=== PATIENT | female | born 2000 | race Caucasian/White ===

== ENCOUNTER 2023-01-15 22:02 | Inpatient (IN) | payer OTHER ==
[~2023-01-15] VITALS: Ht 162.6 cm; Wt 51.3 kg
[2023-01-16 00:07] LABS: COVID AG,FIA SOURCE NASAL SWAB
[2023-01-16 00:29] LABS: SARS-COV2 (COVID) ANTIGEN,FIA Negative (Negative)
[2023-01-16] MEDS ORDERED: DEXT5TAB16 PO (00:29)
[2023-01-16 01:15] LABS: ALCOHOL, URINE DRUG SCREEN NEGATIVE (NEGATIVE); AMPHET/METH SCREEN,URINE NEGATIVE (NEGATIVE); BARBITURATE SCREEN, URINE NEGATIVE (NEGATIVE); BENZODIAZEPINES SCREEN,URINE NEGATIVE (NEGATIVE); CANNABINOID SCREEN,URINE POSITIVE (NEGATIVE); COCAINE SCREEN,URINE NEGATIVE (NEGATIVE); METHADONE SCREEN, URINE NEGATIVE (NEGATIVE); OPIATE SCREEN,URINE NEGATIVE (NEGATIVE); PHENCYCLIDINE SCREEN,URINE NEGATIVE (NEGATIVE)
[2023-01-16] MEDS ORDERED: LORazepam 2 MG/ML VIAL IM ONE (01:45)
[2023-01-16] MEDS ORDERED: HALOPERIDOL LACTATE 5 MG/ML VIAL IM ONE (01:45)
[2023-01-16] MEDS ORDERED: DiphenhydrAMINE HCL 50 MG/ML VIAL IM ONE (01:45)
[2023-01-16 02:53] LABS: BASOPHILS % (AUTO) 0.4 % (0.0-2.0); EOSINOPHILS % (AUTO) 0.2 % (1.0-6.0); HEMATOCRIT 38.5 % (36-46); HEMOGLOBIN 13.6 g/dL (12.0-16.0); LYMPHOCYTES # (AUTO) 1.8 K/uL (1.0-4.8); LYMPHOCYTES % (AUTO) 16.5 % (22.0-44.0); MEAN CORPUSCULAR HGB CONC 35.4 G/dL (31.0-37.0); MEAN CORPUSCULAR VOLUME 91 fL (80-100); MONOCYTES # (AUTO) 0.7 K/uL (0.1-1.0); MONOCYTES % (AUTO) 6.3 % (2.0-9.0); NEUTROPHILS # (AUTO) 8.4 K/uL (1.8-7.7); NEUTROPHILS % (AUTO) 76.6 % (40.0-70.0); PLATELET COUNT (AUTO) 373 K/uL (150-450); RED BLOOD CELL COUNT(AUTO) 4.25 MIL/uL (4.00-5.20); RED CELL DISTRIBUTION WIDTH 13.1 % (11.5-14.5)
[2023-01-16 03:01] LABS: ANION GAP 9 mmol/L (8-16); CALCIUM, TOTAL 9.2 mg/dL (8.8-10.5); CARBON DIOXIDE 27 mmol/L (22-29); CHLORIDE 100 mmol/L (98-107); CREATININE 0.68 mg/dL (0.60-1.30); GLOMERULAR FILTR. RATE CALC > 60 mL/min (>60); GLUCOSE,RANDOM 111 mg/dL (70-110); POTASSIUM 3.4 mmol/L (3.5-5.1); SODIUM SERUM 136 mmol/L (136-145); UREA NITROGEN, BLOOD 5 mg/dL (7-18)
[2023-01-16 03:07] LABS: ALANINE AMINOTRANSFERASE 18 U/L (12-78); ALBUMIN 4.1 g/dL (3.4-5.0); ALKALINE PHOSPHATASE 67 U/L (46-116); ASPARTATE AMINOTRANSFERASE 14 U/L (15-37); BILIRUBIN,TOTAL 0.8 mg/dL (0.1-1.0); TOTAL PROTEIN, SERUM 7.2 g/dL (6.4-8.2)
[2023-01-16 03:10] LABS: ALCOHOL, BLOOD (SERUM) < 3 mg/dL (0-10)
[2023-01-16] MEDS ORDERED: POTASSIUM CHLORIDE 10% 40 MEQ/30 ML LIQUID UDCUP PO ONE (03:30)
[2023-01-16] MEDS ORDERED: LORazepam 2 MG TABLET PO PRN (07:30)
[2023-01-16] MEDS ORDERED: ZOLPIDEM TARTRATE 10 MG TABLET PO PRN (07:30)
[2023-01-16] MEDS ORDERED: QUEtiapine FUMARATE 100 MG TABLET PO PRN (07:30)
[2023-01-16] MEDS ORDERED: DEXT5TAB17 PO (11:26)
[2023-01-16] MEDS ORDERED: DEXT20CA4 PO (11:26)
[2023-01-16] MEDS ORDERED: POTASSIUM CHLORIDE 20 MEQ ER TABLET PO ONE (11:30)
[2023-01-16 13:03] VITALS: BP 116/78; PULSE 87; RESP 18; TEMP 97.7; O2SAT 100
[2023-01-16] MEDS ORDERED: TUBERCULIN, PURIFIED PROTEIN DERIVATIVE 5 TU/0.1 ML SYRINGE ID ONE (15:15)
[2023-01-16] MEDS ORDERED: ACETAMINOPHEN 325 MG TABLET PO PRN (15:15)
[2023-01-16] MEDS ORDERED: MAGNESIUM HYDROXIDE SUSPENSION 30 ML UDCUP PO PRN (15:15)
[2023-01-16] MEDS ORDERED: OLANZapine 5 MG RAPDIS TABLET PO PRN ×2 (15:15)
[2023-01-16] MEDS ORDERED: LOPERAMIDE HCL 2 MG CAPSULE PO PRN (15:15)
[2023-01-16] MEDS ORDERED: MAG HYDROX/ALUMINUM HYD/SIMETH ES 30 ML SUSPENSION UDCUP PO PRN (15:15)
[2023-01-16] MEDS ORDERED: PROMETHAZINE HCL 25 MG TABLET PO PRN (15:15)
[2023-01-16] MEDS ORDERED: HydrOXYzine PAMOATE 50 MG CAPSULE PO PRN (15:15)
[2023-01-16] MEDS ORDERED: GuaiFENesin/D-METHORPHAN [SUGAR-FREE] 200-20MG/10 ML SYRUP UDCUP PO PRN (15:15)
[2023-01-16] MEDS: THIAMINE 100 MG TABLET PO SCH (18:52)
[2023-01-16] MEDS: MELATONIN 5 MG TABLET PO SCH (20:08)
[2023-01-16 20:11] VITALS: BP 132/99; PULSE 109; RESP 18; TEMP 97.8; O2SAT 99
[2023-01-16] MEDS ORDERED: OLANZapine 5 MG RAPDIS TABLET PO SCH (21:00)
[2023-01-17 07:57] LABS: HEMOGLOBIN A1C 4.9 % (3.8-5.6)
[2023-01-17 08:16] LABS: ANION GAP 8 mmol/L (8-16); CALCIUM, TOTAL 9.2 mg/dL (8.8-10.5); CARBON DIOXIDE 27 mmol/L (22-29); CHLORIDE 102 mmol/L (98-107); CHOL/HDL RATIO 2.3 (3.9-5.7); CHOLESTEROL 104 mg/dL (131-200); CREATININE 0.63 mg/dL (0.60-1.30); FREE T4 (FREE THYROXINE) 1.47 ng/dL (0.76-1.46); GLOMERULAR FILTR. RATE CALC > 60 mL/min (>60); GLUCOSE,RANDOM 86 mg/dL (70-110); HDL CHOLESTEROL 45 mg/dL (40-60); LDL CHOL (CALC.) 47 mg/dL (0-130); POTASSIUM 3.8 mmol/L (3.5-5.1); SODIUM SERUM 137 mmol/L (136-145); THYROID STIMULATING HORMONE 0.85 uIU/mL (0.36-3.74); TRIGLYCERIDES 59 mg/dL (15-150); UREA NITROGEN, BLOOD 9 mg/dL (7-18)
[2023-01-17] MEDS: OMEGA-3/DHA/EPA/FISH OIL 1,000 MG CAPSULE PO SCH (08:29)
[2023-01-17] MEDS: THIAMINE 100 MG TABLET PO SCH ×2 (08:30→16:57)
[2023-01-17] MEDS: NALTREXONE HCL 50 MG TABLET PO SCH (08:30)
[2023-01-17] MEDS: FOLIC ACID 1 MG TABLET PO SCH (08:30)
[2023-01-17] MEDS: MULTIVITAMINS WITH MINERALS, THERAPEUTIC TABLET PO SCH (08:30)
[2023-01-17 08:33] VITALS: BP 118/69; PULSE 82; RESP 16; TEMP 98; O2SAT 97
[2023-01-17] MEDS ORDERED: LURASIDONE HCL 20 MG TABLET PO PRN (15:45)
[2023-01-17] MEDS: OXcarbazepine 300 MG TABLET PO SCH (16:57)
[2023-01-17 20:03] VITALS: BP 118/63; PULSE 97; RESP 17; TEMP 97.8
[2023-01-17] MEDS: MELATONIN 5 MG TABLET PO SCH (20:18)
[2023-01-17] MEDS ORDERED: LURASIDONE HCL 20 MG TABLET PO SCH (21:00)
[2023-01-18 03:06] LABS: HEPATITIS C AB (EIA) Non Reactive (Non Reactive)
[2023-01-18] MEDS: MULTIVITAMINS WITH MINERALS, THERAPEUTIC TABLET PO SCH (08:13)
[2023-01-18] MEDS: OMEGA-3/DHA/EPA/FISH OIL 1,000 MG CAPSULE PO SCH (08:13)
[2023-01-18] MEDS: OXcarbazepine 300 MG TABLET PO SCH ×2 (08:13→13:37)
[2023-01-18] MEDS: FOLIC ACID 1 MG TABLET PO SCH (08:13)
[2023-01-18] MEDS: NALTREXONE HCL 50 MG TABLET PO SCH (08:13)
[2023-01-18] MEDS: THIAMINE 100 MG TABLET PO SCH (08:13)
[2023-01-18] MEDS ORDERED: BuPROPion HCL XL 150 MG ER TABLET PO SCH (09:00)
[2023-01-18 10:14] VITALS: BP 118/81; PULSE 77; RESP 16; TEMP 97.9; O2SAT 99
[2023-01-18] MEDS ORDERED: NALT50TA PO (15:03)
[2023-01-18] MEDS ORDERED: BUPR-49 PO (15:03)
[2023-01-18] MEDS ORDERED: MELA5TAB40 PO (15:03)
[2023-01-18] MEDS ORDERED: OXCA300T28 PO (15:03)
[2023-01-18] MEDS ORDERED: LURA20TA2 PO (15:03)
[2023-01-18] MEDS ORDERED: OMEG-135 PO (15:03)
== END 2023-01-18 16:40 | disposition left against medical advice (07) | DRG 885 ==
LOC: EMS 22:04 → EDSEX 22:04 → B3A 01-16 08:52
PROVIDERS: ADMIT Psychiatry & Neurology Psychiatry; ATTEND Psychiatry & Neurology Psychiatry
DX: F31.2 Bipolar disorder, current episode manic severe with psychotic features (principal); F43.10 Post-traumatic stress disorder, unspecified; E87.6 Hypokalemia; F90.9 Attention-deficit hyperactivity disorder, unspecified type; Z53.21 Procedure and treatment not carried out due to patient leaving prior to being seen by health care provider; Z20.822 Contact with and (suspected) exposure to COVID-19; Z79.899 Other long term (current) drug therapy; Z87.891 Personal history of nicotine dependence
CPT/HCPCS: 80048; 80053; 80061; 80307; 83036; 84439; 84443; 84703; 85025; 86592; 86803; 87340; 99285; G0480; J1200; J1630; J2060; Q9967

== ENCOUNTER 2024-01-12 18:07 | Inpatient (IN) | payer OTHER, MEDICAID ==
[~2024-01-12 18:07] MED LIST: BUPR-49 PO; LURA20TA2 PO; MELA5TAB40 PO; NALT50TA6 PO; OMEG-135 PO; OXCA300T28 PO
[2024-01-12] MEDS ORDERED: MAGNESIUM HYDROXIDE SUSPENSION 30 ML UDCUP PO PRN (19:00)
[2024-01-12] MEDS ORDERED: ACETAMINOPHEN 325 MG TABLET PO PRN (19:00)
[2024-01-12] MEDS ORDERED: MAG HYDROX/ALUMINUM HYD/SIMETH ES 30 ML SUSPENSION UDCUP PO PRN (19:00)
[2024-01-12] MEDS ORDERED: LOPERAMIDE HCL 2 MG CAPSULE PO PRN (19:00)
[2024-01-12 19:55] LABS: GLUCOMETER DEV NAME(LOC) POC.BV; POC SARS-COV2 AG, FIA NEGATIVE (NEGATIVE)
[2024-01-12] MEDS: ZOLPIDEM TARTRATE 10 MG TABLET PO PRN (20:35)
[2024-01-12] MEDS: HALOPERIDOL 5 MG TABLET PO PRN (20:35)
[2024-01-12] MEDS: LORazepam 2 MG TABLET PO PRN (20:35)
[2024-01-12 22:06] VITALS: BP 141/92; PULSE 89; RESP 19; TEMP 97.5; O2SAT 97
[2024-01-12 22:08] VITALS: BP 141/92; PULSE 89; RESP 19; TEMP 97.5; O2SAT 97
[2024-01-13 08:10] VITALS: BP 109/73; PULSE 76; RESP 16; TEMP 97.8; O2SAT 98
[2024-01-13 08:16] LABS: BASOPHILS % (AUTO) 0.4 % (0.0-2.0); EOSINOPHILS % (AUTO) 3.1 % (1.0-6.0); HEMATOCRIT 37.4 % (36-46); LYMPHOCYTES # (AUTO) 2.8 K/uL (1.0-4.8); LYMPHOCYTES % (AUTO) 39.8 % (22.0-44.0); MEAN CORPUSCULAR HEMOGLOBIN 31.6 pg (26.0-34.0); MEAN CORPUSCULAR HGB CONC 34.6 G/dL (31.0-37.0); MEAN CORPUSCULAR VOLUME 91 fL (80-100); MONOCYTES # (AUTO) 0.7 K/uL (0.1-1.0); MONOCYTES % (AUTO) 10.4 % (2.0-9.0); NEUTROPHILS # (AUTO) 3.3 K/uL (1.8-7.7); NEUTROPHILS % (AUTO) 46.3 % (40.0-70.0); PLATELET COUNT (AUTO) 354 K/uL (150-450); RED CELL DISTRIBUTION WIDTH 13.1 % (11.5-14.5); WHITE BLOOD COUNT (AUTO) 7.1 K/uL (4.5-11.0)
[2024-01-13 08:41] LABS: ALANINE AMINOTRANSFERASE 17 U/L (12-78); ALBUMIN 3.6 g/dL (3.4-5.0); ALKALINE PHOSPHATASE 65 U/L (46-116); ANION GAP 12 mmol/L (8-16); ASPARTATE AMINOTRANSFERASE 15 U/L (15-37); BILIRUBIN,TOTAL 0.9 mg/dL (0.1-1.0); CALCIUM, TOTAL 8.3 mg/dL (8.8-10.5); CARBON DIOXIDE 25 mmol/L (22-29); CHLORIDE 104 mmol/L (98-107); CHOL/HDL RATIO 1.9 (3.9-5.7); CHOLESTEROL 97 mg/dL (131-200); CREATININE 0.44 mg/dL (0.60-1.30); GLOMERULAR FILTR. RATE CALC > 60 mL/min (>60); GLUCOSE,RANDOM 78 mg/dL (70-110); HDL CHOLESTEROL 50 mg/dL (40-60); LDL CHOL (CALC.) 40 mg/dL (0-130); POTASSIUM 3.4 mmol/L (3.5-5.1); SODIUM SERUM 141 mmol/L (136-145); TOTAL PROTEIN, SERUM 6.4 g/dL (6.4-8.2); TRIGLYCERIDES 37 mg/dL (15-150); UREA NITROGEN, BLOOD 4 mg/dL (7-18)
[2024-01-13 09:02] LABS: HCG,QUANTITATIVE < 1 mIU/mL (0-6); THYROID STIMULATING HORMONE 0.96 uIU/mL (0.36-3.74)
[2024-01-13] MEDS ORDERED: PETROLATUM,WHITE 28 GM JELLY TP PRN ×2 (09:15→13:45)
[2024-01-13] MEDS ORDERED: LOPERAMIDE HCL 2 MG CAPSULE PO PRN ×2 (09:15→13:45)
[2024-01-13] MEDS ORDERED: MAGNESIUM HYDROXIDE SUSPENSION 30 ML UDCUP PO PRN ×2 (09:15→13:45)
[2024-01-13] MEDS ORDERED: ALBUTEROL SULFATE HFA 90 MCG/PUFF 8 GM INHALER IH PRN ×2 (09:15→13:45)
[2024-01-13] MEDS ORDERED: CloNIDine HCL 0.1 MG TABLET PO PRN ×2 (09:15→13:45)
[2024-01-13] MEDS ORDERED: GuaiFENesin/D-METHORPHAN [SUGAR-FREE] 200-20MG/10 ML SYRUP UDCUP PO PRN ×2 (09:15→13:45)
[2024-01-13] MEDS ORDERED: MAG HYDROX/ALUMINUM HYD/SIMETH ES 30 ML SUSPENSION UDCUP PO PRN ×2 (09:15→13:45)
[2024-01-13] MEDS ORDERED: ONDANSETRON 4 MG TABLET PO PRN ×2 (09:15→13:45)
[2024-01-13] MEDS ORDERED: DOCUSATE SODIUM 100 MG CAPSULE PO PRN ×2 (09:15→13:45)
[2024-01-13] MEDS ORDERED: ACETAMINOPHEN 325 MG TABLET PO PRN ×2 (09:15→13:45)
[2024-01-13] MEDS ORDERED: NICOTINE 14 MG/24 HOUR PATCH TD PRN (09:15)
[2024-01-13] MEDS ORDERED: IBUPROFEN 400 MG TABLET PO PRN ×2 (09:15→13:45)
[2024-01-13] MEDS: OXcarbazepine 300 MG TABLET PO SCH (13:58)
[2024-01-13] MEDS: NICOTINE 14 MG/24 HOUR PATCH TD PRN (14:04)
[2024-01-13] MEDS: LURASIDONE HCL 20 MG TABLET PO SCH (16:19)
[2024-01-13 20:46] VITALS: BP 139/100; PULSE 96; RESP 18; TEMP 97.4; O2SAT 99
[2024-01-14] MEDS: BuPROPion HCL XL 150 MG ER TABLET PO SCH (08:29)
[2024-01-14 08:34] VITALS: BP 123/78; PULSE 99; RESP 16; TEMP 97.9; O2SAT 97
[2024-01-14 09:17] LABS: BASOPHILS % (AUTO) 0.5 % (0.0-2.0); EOSINOPHILS % (AUTO) 1.5 % (1.0-6.0); HEMATOCRIT 41.7 % (36-46); HEMOGLOBIN 14.3 g/dL (12.0-16.0); LYMPHOCYTES # (AUTO) 2.1 K/uL (1.0-4.8); LYMPHOCYTES % (AUTO) 25.3 % (22.0-44.0); MEAN CORPUSCULAR HEMOGLOBIN 31.6 pg (26.0-34.0); MEAN CORPUSCULAR HGB CONC 34.3 G/dL (31.0-37.0); MEAN CORPUSCULAR VOLUME 92 fL (80-100); MONOCYTES # (AUTO) 0.7 K/uL (0.1-1.0); MONOCYTES % (AUTO) 7.9 % (2.0-9.0); NEUTROPHILS # (AUTO) 5.4 K/uL (1.8-7.7); NEUTROPHILS % (AUTO) 64.8 % (40.0-70.0); PLATELET COUNT (AUTO) 370 K/uL (150-450); RED BLOOD CELL COUNT(AUTO) 4.53 MIL/uL (4.00-5.20); RED CELL DISTRIBUTION WIDTH 13.6 % (11.5-14.5); WHITE BLOOD COUNT (AUTO) 8.4 K/uL (4.5-11.0)
[2024-01-14 09:27] LABS: HEMOGLOBIN A1C 4.9 % (3.8-5.6)
[2024-01-14 09:59] LABS: ALANINE AMINOTRANSFERASE 19 U/L (12-78); ALBUMIN 3.8 g/dL (3.4-5.0); ALKALINE PHOSPHATASE 71 U/L (46-116); ANION GAP 13 mmol/L (8-16); ASPARTATE AMINOTRANSFERASE 20 U/L (15-37); BILIRUBIN,TOTAL 0.9 mg/dL (0.1-1.0); CALCIUM, TOTAL 8.7 mg/dL (8.8-10.5); CARBON DIOXIDE 25 mmol/L (22-29); CHLORIDE 102 mmol/L (98-107); CHOL/HDL RATIO 2.2 (3.9-5.7); CHOLESTEROL 118 mg/dL (131-200); CREATININE 0.63 mg/dL (0.60-1.30); GLOMERULAR FILTR. RATE CALC > 60 mL/min (>60); GLUCOSE,RANDOM 55 mg/dL (70-110); HDL CHOLESTEROL 54 mg/dL (40-60); LDL CHOL (CALC.) 57 mg/dL (0-130); POTASSIUM 3.7 mmol/L (3.5-5.1); SODIUM SERUM 140 mmol/L (136-145); THYROID STIMULATING HORMONE 0.37 uIU/mL (0.36-3.74); TOTAL PROTEIN, SERUM 6.9 g/dL (6.4-8.2); TRIGLYCERIDES 37 mg/dL (15-150); UREA NITROGEN, BLOOD 5 mg/dL (7-18)
[2024-01-15 08:09] VITALS: BP 133/93; PULSE 100; RESP 16; TEMP 97.3; O2SAT 97
[2024-01-15] MEDS: INFLUENZA VIRUS VACCINE TVS (6MO+) 2024-25/PF 45 MCG/0.5 ML SYRINGE IM. ONE (10:50)
[2024-01-16 08:21] LABS: APPEARANCE,URINE TURBID (CLEAR); BILIRUBIN,URINE NEGATIVE (NEGATIVE); COLOR,URINE LIGHT ORANGE (YELLOW); GLUCOSE, URINE (UA) NEGATIVE (NEGATIVE); LEUKOCYTE ESTERASE ,URINE LARGE (NEGATIVE); NITRATE,URINE NEGATIVE (NEGATIVE); OCCULT BLOOD,URINE MODERATE (NEGATIVE); PH,URINE 6.5 (5.0-8.0); PH,URINE DRUG SCREEN 6.5 (5.0-8.0); PROTEIN,URINE 30-70 mg/dL (NEGATIVE); SPECIFIC GRAVITIY, URINE 1.003 (1.003-1.030); UROBILINOGEN,URINE <=1.0 mg/dL (<=1.0)
[2024-01-16 08:24] VITALS: BP 149/105; PULSE 100; RESP 18; TEMP 97.6; O2SAT 99
[2024-01-16 08:30] LABS: ALCOHOL, URINE DRUG SCREEN NEGATIVE (NEGATIVE); AMPHET/METH SCREEN,URINE NEGATIVE (NEGATIVE); BARBITURATE SCREEN, URINE NEGATIVE (NEGATIVE); BENZODIAZEPINES SCREEN,URINE NEGATIVE (NEGATIVE); CANNABINOID SCREEN,URINE POSITIVE (NEGATIVE); COCAINE SCREEN,URINE NEGATIVE (NEGATIVE); METHADONE SCREEN, URINE NEGATIVE (NEGATIVE); OPIATE SCREEN,URINE NEGATIVE (NEGATIVE); PHENCYCLIDINE SCREEN,URINE NEGATIVE (NEGATIVE)
[2024-01-16 09:33] LABS: BACTERIA,URINE Many /HPF (None Seen); SQUAMOUS EPITHELIAL CELL,UR Many /LPF (None Seen)
[2024-01-16] MEDS: CEPHALEXIN MONOHYDRATE 500 MG CAPSULE PO SCH (12:11)
[2024-01-16 16:45] VITALS: BP 134/91; PULSE 91
[2024-01-16 20:46] VITALS: RESP 17
[2024-01-17 08:06] VITALS: BP 140/87; PULSE 100; RESP 16; TEMP 97.9; O2SAT 97
[2024-01-17] MEDS ORDERED: BUPR-514 PO (10:56)
[2024-01-17] MEDS ORDERED: OXCA300T28 PO (10:56)
[2024-01-17] MEDS ORDERED: LURA20TA PO (10:56)
[2024-01-17] MEDS ORDERED: CEPH-558 PO ×2 (14:49→15:03)
== END 2024-01-17 12:40 | disposition home or self-care (01) | DRG 885 ==
LOC: B3A 19:19
PROVIDERS: ADMIT Psychiatry & Neurology Psychiatry; ATTEND Psychiatry & Neurology Psychiatry
PROC: GZHZZZZ Group Psychotherapy (ICD-10-PCS; principal; 2024-01-13)
PROC: GZ52ZZZ Individual Psychotherapy, Cognitive (ICD-10-PCS; 2024-01-13)
DX: F25.0 Schizoaffective disorder, bipolar type (principal); R03.0 Elevated blood-pressure reading, without diagnosis of hypertension; E87.6 Hypokalemia; G47.00 Insomnia, unspecified; Z20.822 Contact with and (suspected) exposure to COVID-19; F43.12 Post-traumatic stress disorder, chronic; Z79.899 Other long term (current) drug therapy
CPT/HCPCS: 80053; 80061; 80307; 81001; 83036; 84443; 84702; 85025; 87086; 90686

== ENCOUNTER 2024-02-14 05:08 | Inpatient (IN) | payer MEDICAID ==
[~2024-02-14] VITALS: Ht 162.6 cm; Wt 52.2 kg
[~2024-02-14 05:08] MED LIST changes: -BUPR-49 PO; +BUPR-514 PO; +CEPH-558 PO; +LURA20TA PO; -LURA20TA2 PO; -MELA5TAB40 PO; -NALT50TA6 PO; -OMEG-135 PO
[2024-02-14] MEDS: DiphenhydrAMINE HCL 50 MG CAPSULE PO ONE (06:29)
[2024-02-14] MEDS: LORazepam 2 MG TABLET PO ONE (06:29)
[2024-02-14] MEDS: HALOPERIDOL 5 MG TABLET PO ONE (06:29)
[2024-02-14] MEDS ORDERED: HALOPERIDOL 5 MG TABLET PO PRN (06:45)
[2024-02-14] MEDS ORDERED: LORazepam 2 MG TABLET PO PRN (06:45)
[2024-02-14] MEDS ORDERED: ZOLPIDEM TARTRATE 10 MG TABLET PO PRN ×2 (06:45→07:00)
[2024-02-14 07:23] LABS: ANION GAP 10 mmol/L (8-16); CARBON DIOXIDE 28 mmol/L (22-29); CHLORIDE 101 mmol/L (98-107); GLOMERULAR FILTR. RATE CALC > 60 mL/min (>60); GLUCOSE,RANDOM 104 mg/dL (70-110); POTASSIUM 3.6 mmol/L (3.5-5.1); SODIUM SERUM 139 mmol/L (136-145); UREA NITROGEN, BLOOD 6 mg/dL (7-18)
[2024-02-14 07:26] LABS: BASOPHILS % (AUTO) 0.6 % (0.0-2.0); EOSINOPHILS % (AUTO) 0.8 % (1.0-6.0); HEMATOCRIT 42.3 % (36-46); HEMOGLOBIN 14.4 g/dL (12.0-16.0); LYMPHOCYTES # (AUTO) 2.5 K/uL (1.0-4.8); MEAN CORPUSCULAR HEMOGLOBIN 31.2 pg (26.0-34.0); MEAN CORPUSCULAR VOLUME 92 fL (80-100); MONOCYTES % (AUTO) 9.7 % (2.0-9.0); NEUTROPHILS # (AUTO) 6.4 K/uL (1.8-7.7); NEUTROPHILS % (AUTO) 63.9 % (40.0-70.0); PLATELET COUNT (AUTO) 378 K/uL (150-450); RED BLOOD CELL COUNT(AUTO) 4.62 MIL/uL (4.00-5.20); RED CELL DISTRIBUTION WIDTH 13.7 % (11.5-14.5); WHITE BLOOD COUNT (AUTO) 10.1 K/uL (4.5-11.0)
[2024-02-14 07:35] LABS: ALCOHOL, BLOOD (SERUM) < 3 mg/dL (0-10)
[2024-02-14 07:39] LABS: COVID AG,FIA SOURCE NPH
[2024-02-14 07:46] LABS: HCG,QUANTITATIVE < 1 mIU/mL (0-6)
[2024-02-14 07:54] LABS: APPEARANCE,URINE HAZY (CLEAR); BILIRUBIN,URINE NEGATIVE (NEGATIVE); COLOR,URINE LIGHT YELLOW (YELLOW); GLUCOSE, URINE (UA) NEGATIVE (NEGATIVE); KETONES,URINE NEGATIVE (NEGATIVE); LEUKOCYTE ESTERASE ,URINE SMALL (NEGATIVE); NITRATE,URINE NEGATIVE (NEGATIVE); OCCULT BLOOD,URINE LARGE (NEGATIVE); PROTEIN,URINE NEGATIVE (NEGATIVE); UROBILINOGEN,URINE <=1.0 mg/dL (<=1.0)
[2024-02-14 08:00] LABS: AMPHET/METH SCREEN,URINE NEGATIVE (NEGATIVE); BARBITURATE SCREEN, URINE NEGATIVE (NEGATIVE); BENZODIAZEPINES SCREEN,URINE NEGATIVE (NEGATIVE); CANNABINOID SCREEN,URINE POSITIVE (NEGATIVE); COCAINE SCREEN,URINE NEGATIVE (NEGATIVE); METHADONE SCREEN, URINE NEGATIVE (NEGATIVE); OPIATE SCREEN,URINE NEGATIVE (NEGATIVE); PHENCYCLIDINE SCREEN,URINE NEGATIVE (NEGATIVE)
[2024-02-14 08:04] LABS: ALCOHOL, URINE DRUG SCREEN NEGATIVE (NEGATIVE); BACTERIA,URINE Moderate /HPF (None Seen); SQUAMOUS EPITHELIAL CELL,UR Moderate /LPF (None Seen)
[2024-02-14 08:06] LABS: SARS-COV2 (COVID) ANTIGEN,FIA Negative (Negative)
[2024-02-14 08:42] LABS: HCG,QUAL URINE NEGATIVE (NEGATIVE)
[2024-02-14 10:16] VITALS: O2SAT 100
[2024-02-14 10:45] VITALS: BP 130/90; PULSE 86; RESP 18; TEMP 98.1; O2SAT 100
[2024-02-14] MEDS: CEPHALEXIN MONOHYDRATE 500 MG CAPSULE PO SCH (13:24)
[2024-02-14] MEDS: OXcarbazepine 300 MG TABLET PO SCH (17:00)
[2024-02-14] MEDS: BuPROPion HCL XL 150 MG ER TABLET PO SCH (17:07)
[2024-02-14] MEDS: LURASIDONE HCL 40 MG TABLET PO SCH (17:08)
[2024-02-14 20:00] VITALS: RESP 16
[2024-02-15] MEDS ORDERED: MAG HYDROX/ALUMINUM HYD/SIMETH ES 30 ML SUSPENSION UDCUP PO PRN (06:15)
[2024-02-15] MEDS ORDERED: CloNIDine HCL 0.1 MG TABLET PO PRN (06:15)
[2024-02-15] MEDS ORDERED: MAGNESIUM HYDROXIDE SUSPENSION 30 ML UDCUP PO PRN (06:15)
[2024-02-15] MEDS ORDERED: ALBUTEROL SULFATE HFA 90 MCG/PUFF 8 GM INHALER IH PRN (06:15)
[2024-02-15] MEDS ORDERED: NICOTINE 14 MG/24 HOUR PATCH TD PRN (06:15)
[2024-02-15] MEDS ORDERED: IBUPROFEN 400 MG TABLET PO PRN (06:15)
[2024-02-15] MEDS ORDERED: ONDANSETRON 4 MG TABLET PO PRN (06:15)
[2024-02-15] MEDS ORDERED: LOPERAMIDE HCL 2 MG CAPSULE PO PRN (06:15)
[2024-02-15] MEDS ORDERED: ACETAMINOPHEN 325 MG TABLET PO PRN (06:15)
[2024-02-15] MEDS ORDERED: GuaiFENesin/D-METHORPHAN [SUGAR-FREE] 200-20MG/10 ML SYRUP UDCUP PO PRN (06:15)
[2024-02-15] MEDS ORDERED: DOCUSATE SODIUM 100 MG CAPSULE PO PRN (06:15)
[2024-02-15 08:34] VITALS: BP 111/69; PULSE 92; RESP 18; TEMP 97.6; O2SAT 98
[2024-02-15] MEDS: NICOTINE POLACRILEX 2 MG LOZENGE PO PRN (08:51)
[2024-02-15] MEDS ORDERED: NICOTINE 14 MG/24 HOUR PATCH TD SCH (09:00)
[2024-02-15] MEDS: LORazepam 2 MG TABLET PO PRN (15:57)
[2024-02-15] MEDS: HALOPERIDOL 5 MG TABLET PO PRN (15:57)
[2024-02-15 20:00] VITALS: BP 124/85; PULSE 94; RESP 18; TEMP 98.3; O2SAT 98
[2024-02-16 07:06] LABS: HEPATITIS C AB (EIA) Non Reactive (Non Reactive)
[2024-02-16 08:09] VITALS: BP 131/84; PULSE 93; RESP 17; TEMP 97.8; O2SAT 98
[2024-02-16 09:20] LABS: HEMOGLOBIN A1C 4.8 % (3.8-5.6)
[2024-02-16 09:30] LABS: CHOL/HDL RATIO 2.4 (3.9-5.7); THYROID STIMULATING HORMONE 1.09 uIU/mL (0.36-3.74)
[2024-02-16 21:02] VITALS: BP 128/82; PULSE 88; RESP 18; TEMP 97.6; O2SAT 98
[2024-02-17 08:13] VITALS: BP 114/78; PULSE 84; RESP 17; TEMP 96.2; O2SAT 100
[2024-02-17 20:50] VITALS: BP 119/80; PULSE 86; RESP 18; TEMP 98.2; O2SAT 99
[2024-02-18 08:30] VITALS: BP 123/86; PULSE 92; RESP 16; TEMP 98.3; O2SAT 99
[2024-02-18 20:44] VITALS: BP 116/79; PULSE 102; RESP 17; TEMP 97.3; O2SAT 99
[2024-02-19] MEDS: PETROLATUM,WHITE 28 GM JELLY TP PRN (06:47)
[2024-02-19 08:57] VITALS: BP 133/87; PULSE 87; RESP 16; TEMP 98.2; O2SAT 100
[2024-02-19 20:13] VITALS: BP 117/88; PULSE 86; RESP 17; TEMP 98.5; O2SAT 98
[2024-02-20 08:18] VITALS: BP 115/79; PULSE 92; RESP 17; TEMP 97.6; O2SAT 98
[2024-02-20 21:02] VITALS: RESP 16
[2024-02-21 08:13] VITALS: BP 114/77; PULSE 68; RESP 18; TEMP 97.7; O2SAT 100
[2024-02-21 20:55] VITALS: BP 115/70; PULSE 88; RESP 18; TEMP 97.7; O2SAT 99
[2024-02-22 04:26] VITALS: BP 137/85; PULSE 91; RESP 18; TEMP 97.5; O2SAT 99
[2024-02-22 08:06] VITALS: BP 105/66; PULSE 85; RESP 17; TEMP 97.2; O2SAT 99
[2024-02-22 20:37] VITALS: BP 102/60; PULSE 84; RESP 16; TEMP 97.1; O2SAT 98
[2024-02-23 08:40] VITALS: BP 112/74; PULSE 95; RESP 17; TEMP 97.1; O2SAT 99
[2024-02-23 20:12] VITALS: BP 124/84; PULSE 100; RESP 17; TEMP 97.7; O2SAT 99
[2024-02-24 08:20] VITALS: BP 102/71; PULSE 90; RESP 17; TEMP 96.8; O2SAT 98
[2024-02-24 20:16] VITALS: BP 124/84; PULSE 100; RESP 18; TEMP 98; O2SAT 98
[2024-02-25] MEDS ORDERED: LURA40TA2 PO (08:28)
[2024-02-25 08:32] VITALS: BP 110/70; PULSE 87; RESP 18; TEMP 97.7; O2SAT 98
== END 2024-02-25 15:59 | disposition home or self-care (01) | DRG 750 ==
LOC: EMS 05:09 → B2S 09:27
PROVIDERS: ADMIT Psychiatry & Neurology Psychiatry; ATTEND Psychiatry & Neurology Psychiatry
PROC: GZHZZZZ Group Psychotherapy (ICD-10-PCS; principal; 2024-02-14)
PROC: GZ52ZZZ Individual Psychotherapy, Cognitive (ICD-10-PCS; 2024-02-14)
DX: F25.0 Schizoaffective disorder, bipolar type (principal); Z91.148 Patient's other noncompliance with medication regimen for other reason; F12.10 Cannabis abuse, uncomplicated; F17.210 Nicotine dependence, cigarettes, uncomplicated; F43.12 Post-traumatic stress disorder, chronic; F90.9 Attention-deficit hyperactivity disorder, unspecified type; N39.0 Urinary tract infection, site not specified; G47.00 Insomnia, unspecified; F64.0 Transsexualism; F84.0 Autistic disorder; Z79.899 Other long term (current) drug therapy
CPT/HCPCS: 80048; 80061; 80307; 81001; 83036; 84443; 84702; 84703; 85025; 86803; 87086; 87147; 87340; 93005; 99285; G0480

== ENCOUNTER 2024-12-20 00:57 | Emergency (ER) | payer OTHER ==
[~2024-12-20] VITALS: Ht 162.6 cm; Wt 46.4 kg
[~2024-12-20 00:57] MED LIST changes: +ATOM10CA4 PO; +BUPR-50 PO; -BUPR-514 PO; -CEPH-558 PO; -LURA20TA PO; +LURA40TA2 PO
[2024-12-20 01:42] VITALS: TEMP 98.9
[2024-12-20 01:57] VITALS: BP 131/77; PULSE 81; RESP 18; O2SAT 100
[2024-12-20 01:57] LABS: COVID AG,FIA SOURCE NASAL SWAB
[2024-12-20 02:06] LABS: SARS-COV2 (COVID) ANTIGEN,FIA Negative (Negative)
[2024-12-20] MEDS ORDERED: SULF-261 PO (02:45)
== END 2024-12-20 03:09 | disposition home or self-care (01) ==
LOC: EMS 01:00
DX: H60.11 Cellulitis of right external ear (principal); H66.91 Otitis media, unspecified, right ear; F31.9 Bipolar disorder, unspecified; F41.9 Anxiety disorder, unspecified; F17.210 Nicotine dependence, cigarettes, uncomplicated; Z79.899 Other long term (current) drug therapy; Z88.5 Allergy status to narcotic agent; Z20.822 Contact with and (suspected) exposure to COVID-19
CPT/HCPCS: 99283

== ENCOUNTER 2024-12-22 17:49 | Emergency (ER) | payer OTHER ==
[~2024-12-22] VITALS: Ht 163.8 cm; Wt 59.1 kg
[~2024-12-22 17:49] MED LIST changes: +SULF-261 PO
[2024-12-22 18:28] VITALS: BP 117/69; PULSE 101; RESP 18; TEMP 98.1; O2SAT 99
[2024-12-22] MEDS ORDERED: DEXT10TA4 PO (18:37)
[2024-12-22 19:03] LABS: PLATELET COUNT (AUTO) 454 K/uL (150-450); RED BLOOD CELL COUNT(AUTO) 4.47 MIL/uL (4.00-5.20); RED CELL DISTRIBUTION WIDTH 15.6 % (11.5-14.5); WHITE BLOOD COUNT (AUTO) 8.7 K/uL (4.5-11.0)
[2024-12-22 19:16] LABS: CALCIUM, TOTAL 9.0 mg/dL (8.8-10.5); CREATININE 0.49 mg/dL (0.60-1.30); GLOMERULAR FILTR. RATE CALC > 60 mL/min (>60); GLUCOSE,RANDOM 101 mg/dL (70-110); SODIUM SERUM 141 mmol/L (136-145); UREA NITROGEN, BLOOD 1 mg/dL (7-18)
[2024-12-22 20:22] LABS: APPEARANCE,URINE CLEAR (CLEAR); GLUCOSE, URINE (UA) NEGATIVE (NEGATIVE); LEUKOCYTE ESTERASE ,URINE NEGATIVE (NEGATIVE); NITRATE,URINE NEGATIVE (NEGATIVE); OCCULT BLOOD,URINE LARGE (NEGATIVE); PH,URINE DRUG SCREEN 7.0 (5.0-8.0); SPECIFIC GRAVITIY, URINE 1.006 (1.003-1.030)
[2024-12-22 20:30] LABS: AMPHET/METH SCREEN,URINE NEGATIVE (NEGATIVE); BARBITURATE SCREEN, URINE NEGATIVE (NEGATIVE); CANNABINOID SCREEN,URINE POSITIVE (NEGATIVE); COCAINE SCREEN,URINE NEGATIVE (NEGATIVE); METHADONE SCREEN, URINE NEGATIVE (NEGATIVE)
[2024-12-22 20:37] LABS: ALCOHOL, URINE DRUG SCREEN NEGATIVE (NEGATIVE)
[2024-12-22 21:43] LABS: SQUAMOUS EPITHELIAL CELL,UR Few /LPF (None Seen)
== END 2024-12-22 20:57 | disposition left against medical advice (07) ==
LOC: EMS 17:49
DX: F41.9 Anxiety disorder, unspecified (principal); Z53.21 Procedure and treatment not carried out due to patient leaving prior to being seen by health care provider
CPT/HCPCS: 99281; 80048; 81001; 84703; 85025; 36415; 80307; G0480

== ENCOUNTER 2025-01-31 21:55 | Inpatient (IN) | payer MEDICAID, OTHER ==
[~2025-01-31] VITALS: Ht 162.6 cm; Wt 63.5 kg
[~2025-01-31 21:55] MED LIST changes: -ATOM10CA4 PO; +DEXT10TA4 PO; -SULF-261 PO
[2025-01-31 22:50] LABS: COVID AG,FIA SOURCE NASAL SWAB
[2025-01-31 23:06] LABS: SARS-COV2 (COVID) ANTIGEN,FIA Negative (Negative)
[2025-01-31] MEDS: ZOLPIDEM TARTRATE 10 MG TABLET PO PRN (23:10)
[2025-02-01 01:17] LABS: PLATELET COUNT (AUTO) 366 K/uL (150-450); RED BLOOD CELL COUNT(AUTO) 4.10 MIL/uL (4.00-5.20); RED CELL DISTRIBUTION WIDTH 15.7 % (11.5-14.5); WHITE BLOOD COUNT (AUTO) 16.7 K/uL (4.5-11.0)
[2025-02-01 01:25] LABS: CALCIUM, TOTAL 8.7 mg/dL (8.8-10.5); CREATININE 0.45 mg/dL (0.60-1.30); GLOMERULAR FILTR. RATE CALC > 60 mL/min (>60); GLUCOSE,RANDOM 125 mg/dL (70-110); SODIUM SERUM 138 mmol/L (136-145); UREA NITROGEN, BLOOD 3 mg/dL (7-18)
[2025-02-01 05:29] LABS: PLATELET COUNT (AUTO) 395 K/uL (150-450); RED BLOOD CELL COUNT(AUTO) 4.48 MIL/uL (4.00-5.20); RED CELL DISTRIBUTION WIDTH 15.9 % (11.5-14.5); WHITE BLOOD COUNT (AUTO) 13.8 K/uL (4.5-11.0)
[2025-02-01 05:47] LABS: ASPARTATE AMINOTRANSFERASE 16 U/L (15-37); CALCIUM, TOTAL 8.9 mg/dL (8.8-10.5); CHOL/HDL RATIO 2.3 (3.9-5.7); CREATININE 0.54 mg/dL (0.60-1.30); GLOMERULAR FILTR. RATE CALC > 60 mL/min (>60); GLUCOSE,RANDOM 86 mg/dL (70-110); LDL CHOL (CALC.) 59 mg/dL (0-130); SODIUM SERUM 142 mmol/L (136-145); TOTAL PROTEIN, SERUM 7.5 g/dL (6.4-8.2); UREA NITROGEN, BLOOD 4 mg/dL (7-18)
[2025-02-01] MEDS: POTASSIUM CHLORIDE 20 MEQ ER TABLET PO ONE (06:51)
[2025-02-01 11:07] VITALS: O2SAT 98
[2025-02-01 14:40] VITALS: RESP 16
[2025-02-01 20:47] VITALS: RESP 16
[2025-02-02] MEDS: NICOTINE POLACRILEX 2 MG LOZENGE PO PRN (12:51)
[2025-02-02] MEDS: LURASIDONE HCL 40 MG TABLET PO SCH (16:17)
[2025-02-03 08:20] VITALS: BP 115/91; PULSE 96; RESP 16; TEMP 97.4; O2SAT 100
[2025-02-03] MEDS: BuPROPion HCL XL 150 MG ER TABLET PO SCH (08:33)
[2025-02-03 20:57] VITALS: BP 124/79; PULSE 76; RESP 16; TEMP 97.5; O2SAT 98
[2025-02-04 13:40] VITALS: BP 109/69; PULSE 78; RESP 16; TEMP 97.4; O2SAT 98
[2025-02-04 20:14] VITALS: BP 111/85; PULSE 80; RESP 17; TEMP 97.8; O2SAT 98
[2025-02-05 08:23] VITALS: BP 108/62; PULSE 97; RESP 16; TEMP 97.5; O2SAT 99
[2025-02-05 09:35] LABS: PLATELET COUNT (AUTO) 454 K/uL (150-450); RED BLOOD CELL COUNT(AUTO) 4.63 MIL/uL (4.00-5.20); RED CELL DISTRIBUTION WIDTH 15.6 % (11.5-14.5); WHITE BLOOD COUNT (AUTO) 9.9 K/uL (4.5-11.0)
[2025-02-05 20:23] VITALS: BP 115/65; PULSE 75; RESP 17; TEMP 97; O2SAT 98
[2025-02-06 08:06] VITALS: BP 131/85; PULSE 99; RESP 17; TEMP 97.3; O2SAT 97
[2025-02-06 20:24] VITALS: BP 95/63; PULSE 82; RESP 16; TEMP 97.1; O2SAT 100
[2025-02-07 08:20] VITALS: BP 121/80; PULSE 100; RESP 16; TEMP 97.5; O2SAT 96
[2025-02-07 20:42] VITALS: BP 115/82; PULSE 75; RESP 16; TEMP 97.9; O2SAT 100
[2025-02-08] MEDS ORDERED: IBUPROFEN 400 MG TABLET PO PRN (07:00)
[2025-02-08] MEDS ORDERED: MAG HYDROX/ALUMINUM HYD/SIMETH ES 30 ML SUSPENSION UDCUP PO PRN (07:00)
[2025-02-08] MEDS ORDERED: ACETAMINOPHEN 325 MG TABLET PO PRN (07:00)
[2025-02-08] MEDS ORDERED: MAGNESIUM HYDROXIDE SUSPENSION 30 ML UDCUP PO PRN (07:00)
[2025-02-08] MEDS ORDERED: DOCUSATE SODIUM 100 MG CAPSULE PO PRN (07:00)
[2025-02-08] MEDS: ONDANSETRON 4 MG TABLET PO PRN (08:22)
[2025-02-08 08:30] VITALS: BP 115/83; PULSE 85; RESP 18; TEMP 97.9; O2SAT 99
[2025-02-08] MEDS ORDERED: GuaiFENesin/D-METHORPHAN [SUGAR-FREE] 200-20MG/10 ML SYRUP UDCUP PO PRN (09:45)
[2025-02-08] MEDS ORDERED: PETROLATUM,WHITE 5 GM PACKET JELLY TP PRN (09:45)
[2025-02-08 21:23] VITALS: BP 121/79; PULSE 80; RESP 17; TEMP 97.4; O2SAT 98
[2025-02-09 08:00] VITALS: BP 126/85; PULSE 100; RESP 16; TEMP 98; O2SAT 100
== END 2025-02-09 18:24 | disposition left against medical advice (07) | DRG 750 ==
LOC: EMS 21:55 → B3A 02-01 10:27
PROVIDERS: ADMIT Psychiatry & Neurology Child & Adolescent Psychiatry; ATTEND Psychiatry & Neurology Child & Adolescent Psychiatry
PROC: GZ56ZZZ Individual Psychotherapy, Supportive (ICD-10-PCS; principal; 2025-02-02)
PROC: GZ58ZZZ Individual Psychotherapy, Cognitive-Behavioral (ICD-10-PCS; 2025-02-02)
DX: F31.2 Bipolar disorder, current episode manic severe with psychotic features (principal); Z91.148 Patient's other noncompliance with medication regimen for other reason; D72.829 Elevated white blood cell count, unspecified; E78.5 Hyperlipidemia, unspecified; F43.10 Post-traumatic stress disorder, unspecified; R73.9 Hyperglycemia, unspecified; F41.9 Anxiety disorder, unspecified; Z20.822 Contact with and (suspected) exposure to COVID-19; F90.9 Attention-deficit hyperactivity disorder, unspecified type; F84.0 Autistic disorder; F17.200 Nicotine dependence, unspecified, uncomplicated; F43.9 Reaction to severe stress, unspecified; Z53.29 Procedure and treatment not carried out because of patient's decision for other reasons; Z88.8 Allergy status to other drugs, medicaments and biological substances
CPT/HCPCS: 80048; 80053; 80061; 83036; 84132; 84436; 84443; 84703; 85025; 99285; G0480; Q0162

== ENCOUNTER 2025-02-15 18:42 | Emergency (ER) | payer MEDICAID, OTHER ==
[~2025-02-15] VITALS: Ht 160 cm; Wt 56.8 kg
[~2025-02-15 18:42] MED LIST changes: -DEXT10TA4 PO
[2025-02-15 18:50] VITALS: TEMP 97.7
[2025-02-15 18:55] LABS: COVID AG,FIA SOURCE NASAL SWAB
[2025-02-15 19:05] LABS: RAPID GROUP A STREP PRELIM. NEGATIVE (NEGATIVE)
[2025-02-15 19:12] LABS: INFLUENZA TYPE A NEGATIVE FOR TYPE A (NEGATIVE); INFLUENZA TYPE B NEGATIVE FOR TYPE B (NEGATIVE); SARS-COV2 (COVID) ANTIGEN,FIA Negative (Negative)
[2025-02-15 19:20] VITALS: BP 132/86; PULSE 118; RESP 20; O2SAT 99
== END 2025-02-15 21:36 | disposition left against medical advice (07) ==
LOC: EMS 18:45
DX: J02.9 Acute pharyngitis, unspecified (principal); Z20.822 Contact with and (suspected) exposure to COVID-19; Z53.21 Procedure and treatment not carried out due to patient leaving prior to being seen by health care provider
CPT/HCPCS: 87081; 87430; 87804; 99281; Z7502